=== PATIENT | male | born 1990 | race African-American/Black ===

== ENCOUNTER 2016-11-30 19:25 | Emergency (ER) | payer OTHER ==
[~2016-11-30] VITALS: Ht 175.3 cm; Wt 99.8 kg
[~2016-11-30 19:25] MED LIST: NO
[2016-11-30 21:53] LABS: INFLUENZA A NONE DETECTED (NONE DETECT); INFLUENZA B NONE DETECTED (NONE DETECT)
[2016-11-30] MEDS ORDERED: AMOXICILLIN500 MG PO (23:05)
[2016-11-30 23:10] VITALS: BP 127/77
== END 2016-11-30 23:10 | disposition home or self-care (01) | DRG 951 ==
LOC: ED 19:25
PROVIDERS: Emergency Medicine
DX: F17.200 Nicotine dependence, unspecified, uncomplicated (principal); J02.9 Acute pharyngitis, unspecified

== ENCOUNTER 2018-12-14 10:04 | Emergency (ER) | payer OTHER ==
[~2018-12-14] VITALS: Ht 175.3 cm; Wt 68.0 kg
[~2018-12-14 10:04] MED LIST changes: +AMOXICILLIN500 MG PO
[2018-12-14 10:31] LABS: HEMOGLOBIN 15.2 g/dl (14.0-18.0); IMMATURE GRANULOCYTES 0.5 % (0.0-5.0); MEAN CELL VOLUME 91.8 fL CALC (80.0-100.0); MEAN CORPUSCULAR HGB 30.3 pG CALC (26.0-32.0); NEUT# 11.61 thou/uL (1.82-7.42); RED BLOOD COUNT 5.01 mill/uL (4.70-6.10); RED CELL DISTRI WIDTH 11.4 % (11.5-15.5)
[2018-12-14 10:56] LABS: ALKALINE PHOSPHATASE 77 u/l (38-126); AMYLASE 98 u/l (30-110); ANION GAP 17 (6-22 (CALC)); BILIRUBIN, TOTAL 0.7 mg/dL (0.0-1.4); BUN 12 mg/dL (9-20); BUN/CREATININE RATIO 12 (12-20 (CALC)); CARBON DIOXIDE 25 mmol/l (22-30); CHLORIDE 104 mmol/l (95-108); GFR > 60 ML/MIN (>=60 (CALC)); GFR FOR AFR.AMER. > 60 ML/MIN (>=60 (CALC)); LIPASE 76 u/l (23-300); POTASSIUM 4.2 mmol/l (3.5-5.1); SGOT/AST 25 u/l (17-59); SODIUM 142 mmol/l (137-146); TOTAL PROTEIN 8.2 g/dL (6.3-8.2)
[2018-12-14 13:03] LABS: URINE BILIRUBIN - DIPSTICK NEGATIVE (NEGATIVE); URINE BLOOD DIPSTICK NEGATIVE (NEGATIVE); URINE COLOR YELLOW; URINE GLUCOSE - DIPSTICK NEGATIVE (NEGATIVE); URINE KETONE NEGATIVE (NEGATIVE); URINE LEUK ESTERASE NEGATIVE (NEGATIVE); URINE NITRITE - DIPSTICK NEGATIVE (Negative); URINE PH 8.5 (4.5-8.0); URINE PROTEIN - DIPSTICK NEGATIVE (NEG-TRACE); URINE UROBILINOGEN - DIPSTICK 0.2 E.U./dL (0.2)
[2018-12-14 13:06] LABS: BARBITURATES NEGATIVE (NEGATIVE); COCAINE NEGATIVE (NEGATIVE); METHADONE NEGATIVE (NEGATIVE); OXCYCODONE NEGATIVE (NEGATIVE); TETRAHYDROCANNABIONOL POSITIVE (NEGATIVE); TRICYLIC ANTIDEPRESSANTS NEGATIVE (NEGATIVE)
[2018-12-14] MEDS ORDERED: ULTRAM50 M1 PO (13:09)
[2018-12-14] MEDS ORDERED: ONDANSETRON4 MG PO (13:09)
[2018-12-14 13:12] VITALS: BP 134/80
== END 2018-12-14 13:32 | disposition home or self-care (01) | DRG 392 ==
LOC: ED 10:04
PROVIDERS: Emergency Medicine
DX: K52.9 Noninfective gastroenteritis and colitis, unspecified (principal); F17.210 Nicotine dependence, cigarettes, uncomplicated
CPT/HCPCS: Q9967

== ENCOUNTER 2020-06-12 21:20 | Emergency (ER) | payer SELFPAY ==
[~2020-06-12] VITALS: Ht 175.3 cm; Wt 82.0 kg
[~2020-06-12 21:20] MED LIST changes: +ONDANSETRON4 MG PO; +ULTRAM50 M1 PO
[2020-06-12] MEDS ORDERED: VOLTAREN - GENE75 MG PO (22:06)
[2020-06-12] MEDS ORDERED: AMOXICILLIN500 MG PO (22:06)
[2020-06-12 23:37] VITALS: BP 131/74
== END 2020-06-12 23:37 | disposition home or self-care (01) | DRG 159 ==
LOC: ED 21:20
DX: K08.89 Other specified disorders of teeth and supporting structures (principal); F17.200 Nicotine dependence, unspecified, uncomplicated